=== PATIENT | male | born 1965 ===

== ENCOUNTER → 2019-10-22 | Outpatient (CLI) | payer MEDICAID ==
--- NOTE | 2019-10-22 18:44 | Consultation ---
DATE OF CONSULTATION: 10/22/2019 CHIEF COMPLAINT: Referral for screening colonoscopy. PAST MEDICAL HISTORY: Hypertension. PAST SURGICAL HISTORY: Thyroid surgery. MEDICATIONS: Please see medication reconciliation list. FAMILY HISTORY: Father had throat cancer. SOCIAL HISTORY: The patient denies any tobacco, alcohol, or drug abuse. ALLERGIES: No known drug allergies. REVIEW OF SYSTEMS: Negative. PHYSICAL EXAMINATION: GENERAL: A well-developed male, in no acute distress. HEENT: Normocephalic and atraumatic. Sclerae anicteric. NECK: Supple. No evidence of obvious lymphadenopathy. CARDIOVASCULAR: Regular rate and rhythm. Plus S1, S2. LUNGS: Clear to auscultation bilaterally. ABDOMEN: Positive bowel sounds. Soft and nontender. No rebound. No guarding. No peritoneal sign. EXTREMITIES: No cyanosis. No clubbing. No edema. ASSESSMENT AND PLAN: A 54-year-old male referred for screening colonoscopy. The patient was given instruction for the colonoscopy. Risks and benefits of procedure were explained to him. The patient will be scheduled when authorization is obtained. Jonatan Robles M.D. DR: HAO JOB#: [id number] CC:
== END | disposition home or self-care (01) ==
LOC: PAN 12:23
DX: I10 Essential (primary) hypertension (principal); Z80.8 Family history of malignant neoplasm of other organs or systems